=== PATIENT | male | born 1945 | race Caucasian/White ===

== ENCOUNTER → 2017-11-14 10:48 | Outpatient (CLI) | payer OTHER, SELFPAY ==
--- NOTE | 2017-11-14 10:50 | CDU_ITS ---
Reason For Study: Carotid bruit Rt. Velocities/BP Lt. Velocities/BP Prox CCA 66.3/12.9 cm/sec. Prox CCA 93.2/17.6 cm/sec. Mid CCA 67.4/15.8 cm/sec. Mid CCA 69.2/19.9 cm/sec. Dist CCA 64.5/17.6 cm/sec. Dist CCA 62.7/16.4 cm/sec. Prox ICA 55.7/16.4 cm/sec. Prox ICA 65.7/26.4 cm/sec. Mid ICA 78.0/29.3 cm/sec. Mid ICA 78.0/27.0 cm/sec. Dist ICA 51.2/19.9 cm/sec. Dist ICA 68.1/21.4 cm/sec. Rt. ICA/CCA = 1.2. Lt. ICA/CCA = 1.1. Prox ECA 65.7/9.4 cm/sec. Prox ECA 64.0/8.6 cm/sec. Rt. Vert. 37.5/10.0 cm/sec. Lt. Vert. 41.6/12.9 cm/sec. Right Extracranial There is intimal thickening but no significant atherosclerotic plaque noted in the right common carotid artery. There is intimal thickening but no significant atherosclerotic plaque noted in the right internal carotid artery. There is heterogeneous, irregular atherosclerotic plaque noted in the right external carotid artery. Antegrade flow is noted in the right vertebral artery. Left Extracranial There is intimal thickening but no significant atherosclerotic plaque noted in the left common carotid artery. There is intimal thickening but no significant atherosclerotic plaque noted in the left internal carotid artery. There is heterogeneous, irregular atherosclerotic plaque noted in the left external carotid artery. Antegrade flow is noted in the left vertebral artery. Procedure Carotid Duplex 55926. Exam performed in department. Interpretation Summary No hemodynamically significant plague or stenosis bilateral internal carotids with <50% stenosis bilaterally. Normal flow bilateral external carotids. Patent and antegrade vertebrals bilaterally. Ordering Physician: Jose Delaney Referring Physician: Jose Delaney Performed By: Shalonda Montes RVT
[2017-11-14 11:00] LABS: Absolute Neutrophil Count 2.6 X10^3/uL (2.0-7.7); Basophil# 0.02 X10^3/uL; Basophil% 0.4 % (0-1); Eosinophil# 0.24 X10^3/uL; Eosinophils% 4.8 % (0-5); Hematocrit 43.4 % (40-54); Hemoglobin 14.7 g/dl (13.0-16.5); Mean Corp Hgb Conc 33.9 g/gl (32-36); Mean Corpuscular Volume 97.3 fL (80-94); Mean Platelet Vol. 9.8 fl (6.2-12.0); Monocyte# 0.75 X10^3/uL; Neutrophil # 2.58 X10^3/uL (2.7-7.7); Neutrophil % 51.6 % (47-70); Platelet Count 169 K/mm3 (150-450); RBC Distribution Width SD 48.5 fl (35.1-43.9); Red Blood Count 4.46 M/mm3 (4.6-6.2)
[2017-11-14 11:01] LABS: POSITIVE COUNT NO; POSITIVE DIFFERENTIAL NO; POSITIVE MORPHOLOGY NO
[2017-11-14 11:34] LABS: Anion Gap 6 (5-15); BUN 22 mg/dL (7-18); BUN/Creat Ratio 20.4 RATIO (10-20); Calcium,Total 8.6 mg/dL (8.5-10.1); Chloride 110 mmol/L (98-107); Cholesterol 208 mg/dL (200); Creatinine, Serum 1.08 mg/dL (0.70-1.30); EST Glomerular Filtration Rate 71 mL/min (>60); Est Glom Filt Rate - Afr Amer 86 mL/min (>60); Glucose 79 mg/dL (74-106); High Density Lipoprotein 46 mg/dL; Potassium 4.2 mmol/L (3.5-5.1); Sodium Level 144 mmol/L (136-145); Triglycerides 85 mg/dL; Very Low Density Lipoprotein 17 mg/dL (5-40)
== END ==
PROVIDERS: Visit Provider Surgery
DX: Z01.811 Encounter for preprocedural respiratory examination (principal); Z01.818 Encounter for other preprocedural examination; R09.89 Other specified symptoms and signs involving the circulatory and respiratory systems
CPT/HCPCS: 36415; 80048; 80061; 85025; 93880

== ENCOUNTER → 2017-11-26 06:53 | Day surgery (SDC) | payer OTHER, SELFPAY ==
[2017-11-23 09:41] VITALS: BMI 28.7
[2017-11-26 07:09] LABS: Hematocrit 45.2 % (40-54); Hemoglobin 15.6 g/dl (13.0-16.5); Mean Corp Hgb Conc 34.5 g/gl (32-36); Mean Corpuscular Hgb 33.6 pg (27.0-32.0); Mean Corpuscular Volume 97.4 fL (80-94); Mean Platelet Vol. 9.4 fl (6.2-12.0); Platelet Count 175 K/mm3 (150-450); RBC Distribution Width CV 13.8 % (11.6-14.6); RBC Distribution Width SD 48.8 fl (35.1-43.9); Red Blood Count 4.64 M/mm3 (4.6-6.2); White Blood Count 6.3 K/mm3 (4.4-11.0)
[2017-11-26 07:10] LABS: Scan Indicated on CBC? Y/N NO
[2017-11-26 07:23] LABS: Anion Gap 7 (5-15); BUN 13 mg/dL (7-18); BUN/Creat Ratio 10.9 RATIO (10-20); Calcium,Total 8.8 mg/dL (8.5-10.1); Chloride 109 mmol/L (98-107); Creatinine, Serum 1.19 mg/dL (0.70-1.30); EST Glomerular Filtration Rate 64 mL/min (>60); Est Glom Filt Rate - Afr Amer 77 mL/min (>60); Estimated Creatinine Clearance 56.23 ml/min; Glucose 89 mg/dL (74-106); Potassium 3.9 mmol/L (3.5-5.1); Sodium Level 144 mmol/L (136-145)
[2017-11-26 10:01] LABS: ACT Activated Clotting Time 208 sec (74-137)
[2017-11-26 10:01] LABS: ACT Activated Clotting Time 125 sec (74-137)
[2017-11-26 10:01] LABS: ACT Activated Clotting Time 202 sec (74-137)
--- NOTE | 2017-11-26 10:07 | PCM.OPRPT ---
Problem List (1) PAD (peripheral artery disease) Status: Acute Report of Operation Date of Procedure: 11/26/17 Pre-Operative Diagnosis: Ulceration with cellulitis dorsum left foot. Peripheral vascular occlusive disease Post-Operative Diagnosis: Ulceration with cellulitis dorsum left foot. Peripheral vascular occlusive disease. Total 11 cm occlusion left superficial femoral artery. 70% stenosis left posterior tibial artery Surgery/Procedure Performed:: Abdominal pelvic left lower extremity arteriogram with left superficial femoral artery 6 x 100 mm ever cross angioplasty and 7 x 150 mm ever flex stenting Description of Surgical Findings:: 72-year-old gentleman. Timeout and informed consent was obtained. He was taken to the special procedures lab. He received 2 g of Ancef intravenously. Bilateral groins were sterilely prepped and draped. Ultrasound was used to identify the right common femoral artery. Under ultrasound guidance 2% lidocaine was instilled. Then a micropuncture needle was inserted under ultrasound guidance. Micropuncture wire was inserted. A 6 [place] short sheath dilator was inserted. Using an angled Glidewire and a 5 [place] universal flush catheter [place] was gained to the abdominal aorta. A AP aortogram was obtained using Visipaque contrast the rate of 15 cc a second for 15 cc of diluted contrast. The catheter was then withdrawn to the left common iliac and utilizing a Glidewire the catheter could then be advanced into the left distal external iliac. Static views were obtained. Then the catheter was again advanced into the left superficial femoral artery and static views were obtained of the left lower extremity down below the knee. This demonstrated complete occlusion over 11 cm of the left superficial femoral artery. I then used a Magic wire removed the flush catheter removed the sheath and placed a 7 [place] destination sheath. Having achieved that I then utilized a 018 Quick cross catheter and a connect wire was able to get through the proximal But then it went subintimal and was not able to get through the distal. So then I exchanged out for a 4 [place] angled glide cath and I exchanged out for a stiff Glidewire I was able then to go subintimal and get back into true lumen just at the inferior aspect of the patella right where the vessel refilled on images. I advance the 4 [place] angled glide cath performed an image demonstrating true lumen. I then left that wire in place. The patient had received 9000 units of heparin and based upon ACT measurements received another thousand units of heparin. A 6 x 100 m ever cross balloon was used to perform balloon angioplasty. Follow-up views unfortunately demonstrated dissection particularly proximally and residual stenosis distally. So I then placed a 7 x 150 mm ever flex prot?g? stent. That was then seated in place with the 6 x 100 mm ever cross balloon. Final views now demonstrated complete resolution of the occlusion with good in-line flow. I completed the images of the left below knee. The sheath was removed. I then inserted a minx sheath. I inserted the minx device. The balloon was inflated was withdrawn the device was then applied was allowed to sit for 2 minutes and it was released and removed. Pressure was held for hemostasis no apparent complication. The left foot had good Doppler DP and PT signals. Blood loss was minimal no apparent complication. Images demonstrate a widely patent abdominal aorta bilateral common iliacs external iliacs and internal iliacs and superficial femoral and profunda femoris proximally. The left leg shows complete occlusion of the superficial femoral for 11 cm starting close to Connor's canal extending down to the patella. There is three-vessel runoff to the left lower extremity with 70% stenosis of the mid left posterior tibial artery. The left anterior tibial is very dominant and the peroneal was patent. Subsequent to the angioplasty and stenting there is now direct in-line flow through the superficial femoral artery. Impression Successfully treated left superficial femoral artery with reestablished in-line flow through the area of complete occlusion. I elected not to treat the posterior tibial at this setting. Will evaluate for resolution of the patient's left foot cellulitis and ulceration. Jose Delaney M.D., F.A.C.S. Total contrast used was 50 cc Type of Anesthesia:: IV Sedation
--- NOTE | 2017-11-26 10:17 | OP.PCM_ITS ---
Problem List (1) PAD (peripheral artery disease) Status: Acute Report of Operation Date of Procedure: 11/26/17 Pre-Operative Diagnosis: Ulceration with cellulitis dorsum left foot. Peripheral vascular occlusive disease Post-Operative Diagnosis: Ulceration with cellulitis dorsum left foot. Peripheral vascular occlusive disease. Total 11 cm occlusion left superficial femoral artery. 70% stenosis left posterior tibial artery Surgery/Procedure Performed:: Abdominal pelvic left lower extremity arteriogram with left superficial femoral artery 6 x 100 mm ever cross angioplasty and 7 x 150 mm ever flex stenting Description of Surgical Findings:: 72-year-old gentleman. Timeout and informed consent was obtained. He was taken to the special procedures lab. He received 2 g of Ancef intravenously. Bilateral groins were sterilely prepped and draped. Ultrasound was used to identify the right common femoral artery. Under ultrasound guidance 2% lidocaine was instilled. Then a micropuncture needle was inserted under ultrasound guidance. Micropuncture wire was inserted. A 6 [place] short sheath dilator was inserted. Using an angled Glidewire and a 5 [place] universal flush catheter [place] was gained to the abdominal aorta. A AP aortogram was obtained using Visipaque contrast the rate of 15 cc a second for 15 cc of diluted contrast. The catheter was then withdrawn to the left common iliac and utilizing a Glidewire the catheter could then be advanced into the left distal external iliac. Static views were obtained. Then the catheter was again advanced into the left superficial femoral artery and static views were obtained of the left lower extremity down below the knee. This demonstrated complete occlusion over 11 cm of the left superficial femoral artery. I then used a Magic wire removed the flush catheter removed the sheath and placed a 7 [place] destination sheath. Having achieved that I then utilized a 018 Quick cross catheter and a connect wire was able to get through the proximal But then it went subintimal and was not able to get through the distal. So then I exchanged out for a 4 [place] angled glide cath and I exchanged out for a stiff Glidewire I was able then to go subintimal and get back into true lumen just at the inferior aspect of the patella right where the vessel refilled on images. I advance the 4 [place] angled glide cath performed an image demonstrating true lumen. I then left that wire in place. The patient had received 9000 units of heparin and based upon ACT measurements received another thousand units of heparin. A 6 x 100 m ever cross balloon was used to perform balloon angioplasty. Follow-up views unfortunately demonstrated dissection particularly proximally and residual stenosis distally. So I then placed a 7 x 150 mm ever flex prot?g? stent. That was then seated in place with the 6 x 100 mm ever cross balloon. Final views now demonstrated complete resolution of the occlusion with good in-line flow. I completed the images of the left below knee. The sheath was removed. I then inserted a minx sheath. I inserted the minx device. The balloon was inflated was withdrawn the device was then applied was allowed to sit for 2 minutes and it was released and removed. Pressure was held for hemostasis no apparent complication. The left foot had good Doppler DP and PT signals. Blood loss was minimal no apparent complication. Images demonstrate a widely patent abdominal aorta bilateral common iliacs external iliacs and internal iliacs and superficial femoral and profunda femoris proximally. The left leg shows complete occlusion of the superficial femoral for 11 cm starting close to Connor's canal extending down to the patella. There is three-vessel runoff to the left lower extremity with 70% stenosis of the mid left posterior tibial artery. The left anterior tibial is very dominant and the peroneal was patent. Subsequent to the angioplasty and stenting there is now direct in-line flow through the superficial femoral artery. Impression Successfully treated left superficial femoral artery with reestablished in-line flow through the area of complete occlusion. I elected not to treat the posterior tibial at this setting. Will evaluate for resolution of the patient' s left foot cellulitis and ulceration. Jose Delaney M.D., F.A.C.S. Total contrast used was 50 cc Type of Anesthesia:: IV Sedation
== END ==
PROVIDERS: Family Provider Family Medicine; PCP Family Medicine; Visit Provider Surgery
DX: I73.9 Peripheral vascular disease, unspecified (principal); L97.529 Non-pressure chronic ulcer of other part of left foot with unspecified severity; L03.116 Cellulitis of left lower limb; R01.1 Cardiac murmur, unspecified; R09.89 Other specified symptoms and signs involving the circulatory and respiratory systems; Z87.891 Personal history of nicotine dependence
CPT/HCPCS: 36200; 36245; 36415; 37226; 75625; 75710; 76937; 80048; 85027; 85347; 99152; 99153; C1760; J7030; Q9967; C1725; C1769; C1876; C1887; C1894

== ENCOUNTER → 2017-12-27 08:42 | Outpatient (CLI) | payer OTHER, SELFPAY ==
--- NOTE | 2017-12-27 11:53 | LEAS ---
Arterial Study - Arterial Study Arterial Study: Bilateral lower extremity noninvasive arterial exam with exercise Patient with symptomatic left lower extremity claudication and recent history of stent placement Right lower extremity The right PT and DP ankle-brachial indices at rest are 1.191.07 respectively with triphasic Doppler waveforms. The volume pulse recordings demonstrate normal amplification at the calf ankle the ankle and digital waveforms are well maintained. With exercise the right FADIA goes from resting 1.192 media after exercise at 1.13. There is complete recovery by 9 minutes. Left lower extremity The left PT and DP ankle-brachial index at rest are 1.21 and 1.25 respectively with triphasic Doppler waveforms. Volume pulse recordings demonstrate normal waveform at the calf and the ankle and digital waveforms are adequately maintained. With exercise left FADIA goes from resting 1.252 immediately after exercise at 1.12. There is incomplete recovery at 9 minutes. Impression Normal bilateral lower extremity noninvasive resting indices. Very minimal decline in exercise index bilaterally slightly more noted on the left. This would be consistent with very mild disease. The location of the process cannot be identified. There are no findings that would suggest clinically significant ischemia. Jose Delaney M.D., F.A.C.S.
== END ==
PROVIDERS: Family Provider Family Medicine; PCP Family Medicine; Visit Provider Surgery
DX: I73.9 Peripheral vascular disease, unspecified (principal)
CPT/HCPCS: 93924

== ENCOUNTER → 2018-07-15 09:18 | Outpatient (CLI) | payer SELFPAY ==
--- NOTE | 2018-07-16 05:59 | LEAS_ITS ---
Arterial Study - Arterial Study Arterial Study: Bilateral lower extremity noninvasive arterial exam with exercise Patient with previous history of peripheral arterial occlusive disease and left lower extremity stent Right lower extremity The right PT and DP ankle-brachial index at rest 1.061.06 respectively with tri phasic Doppler waveforms. Volume pulse recordings demonstrate nice waveforms at the calf and maintained ankle and digital waveforms. With exercise the right FADIA goes from resting 1.06 to immediately after exercise at 0.93 there is recovery at 3 minutes at 1.27 Left lower extremity The left PT and DP ankle-brachial indices at rest are 1.13 and 1.11 respectively with triphasic Doppler waveforms. The volume pulse recordings demonstrate normal waveform at the calf. Ankle waveforms slightly depressed while the digital waveform is well maintained. With exercise the left FADIA goes from resting 1.13 to immediately after exercise at 0.88. The highest recovery is at 3 minutes at 1.03 Impression Right lower extremity resting indices are normal and there is minimal decline with exercise on the right consistent with minimal occlusive disease with location not specified. Left lower extremity also demonstrates normal resting indices. With exercise there is a immediate exercise in the ankle-brachial index with essential recovery by 3 minutes. This would be consistent with mild occlusive disease in the range of vascular claudication. The level of that disease is not specified on this exam. Jose Delaney M.D., F.A.C.S.
== END ==
PROVIDERS: Family Provider Family Medicine; PCP Family Medicine; Referring Provider Physician Assistant; Visit Provider Physician Assistant
DX: I73.9 Peripheral vascular disease, unspecified (principal)
CPT/HCPCS: 93924

== ENCOUNTER → 2019-03-04 | Outpatient (CLI) | payer SELFPAY ==
--- NOTE | 2019-03-04 07:41 | ART_ITS ---
Reason For Study: PAD Left Segmental Pressures Left brachial= 128mmHg. Left posterior tibial artery = 161mmHg. Left dorsalis pedis artery = 154mmHg. The left dorsalis pedis waveforms are triphasic. The left posterior tibial artery waveforms are triphasic. Right Segmental Pressures Right brachial= 135mmHg. Right posterior tibial artery = 179mmHg. Right dorsalis pedis artery = 164mmHg. The right dorsalis pedis waveforms are triphasic. The right posterior tibial artery waveforms are triphasic. Indices The right ankle brachial index by the dorsalis pedis is 1.21. The right ankle brachial index by the posterior tibial artery is 1.33. The right ankle brachial index by the dorsalis pedis post exercise is 1.31. The left ankle brachial index by the dorsalis pedis is 1.14. The left ankle brachial index by the posterior tibial artery is 1.19. The left posterior tibial artery index post exercise is 1.06. Interpretation Summary Resting ankle-brachial indices appear bilaterally normal. Post exercise indices are normal on the right and demonstrate very minimal decline on the left but remain within normal range. Ordering Physician: Jose Delaney Performed By: CODY GARCIA [facility]
--- NOTE | 2019-03-04 07:41 | ADUL_ITS ---
Reason For Study: Peripheral artery stent Left Velocities Ext Iliac Artery, dist = 112.5 cm./sec. Common Femoral Artery, mid = 74.4 cm./sec. Supf. Femoral Artery, prox = 89.1 cm./sec. Supf. Femoral Artery, mid = 54.7 cm./sec. Supf. Femoral Artery, dist = 114.4 cm./sec. Profunda Femoral Artery = 87.9 cm./sec. Popliteal Artery, proximal, = 139.9 cm./sec. Popliteal Artery, mid = 105.2 cm./sec. Popliteal Artery, distal = 90.6 cm./sec. Ant.Tibial Artery, prox = 32.1 cm./sec. Ant Tibial Artery, mid = 211.3 cm./sec. Ant. Tibial Artery, distal = 38.0 cm./sec. Post. Tibial Artery, prox = 81.4 cm./sec. Post Tibial Artery, mid = 77.8 cm./sec. Post Tibial Artery, dist. = 101.4 cm./sec. Peroneal Artery, prox = 54.0 cm./sec. Peroneal Artery, mid = 54.0 cm./sec. Peroneal Artery,dist. = 81.4 cm./sec. Prox Stent 60.9 cm/s. Mid Stent 54.7 cm/s. Dist Stent 90.3 cm/s. Interpretation Summary Stent noted in the left mid superficial femoral artery Velocities are relatively constant throughout the stent--patent. From the left mid superficial femoral artery to the distal superficial femoral artery there is velocity doubling consistent with 50-99% stenosis. 50-99% stenosis left proximal to mid anterior tibial artery. Ordering Physician: Jose Delaney Performed By: Richie Cao, RVT
== END | disposition home or self-care (01) ==
PROVIDERS: Family Provider Family Medicine; PCP Family Medicine; Referring Provider Surgery; Visit Provider Surgery
DX: I73.9 Peripheral vascular disease, unspecified (principal); Z95.820 Peripheral vascular angioplasty status with implants and grafts
CPT/HCPCS: 93924; 93926

== ENCOUNTER → 2020-04-01 12:32 | Outpatient (CLI) | payer OTHER, SELFPAY ==
[2020-03-23 10:41] VITALS: BMI 28.7
--- NOTE | 2020-04-01 12:32 | ART_ITS ---
Reason For Study: Claudication Procedure A bilateral lower extremity continuous wave Doppler with analog waveform analysis,segmental pressures,and ankle brachial indexes with exercise. Left Segmental Pressures Left brachial= 164mmHg. Left posterior tibial artery = 185mmHg. Left dorsalis pedis artery = 178mmHg. The left dorsalis pedis waveforms are triphasic. The left posterior tibial artery waveforms are triphasic. Right Segmental Pressures Right brachial= 157mmHg. Right posterior tibial artery = 186mmHg. Right dorsalis pedis artery = 173mmHg. The right dorsalis pedis waveforms are triphasic. The right posterior tibial artery waveforms are triphasic. Indices The right ankle brachial index by the dorsalis pedis is 1.05. The right ankle brachial index by the posterior tibial artery is 1.13. The right post exercise ankle brachial index is 1.07. The left ankle brachial index by the dorsalis pedis is 1.09. The left ankle brachial index by the posterior tibial artery is 1.13. The left post exercise ankle brachial index is 1.06. Interpretation Summary Normal bilateral lower extremity ankle-brachial indices and triphasic Doppler waveforms at rest Minimal decline bilateral lower extremity ankle-brachial indices with exercise Ordering Physician: Jose Delaney Referring Physician: Christa Morgan Performed By: Lidia Clayton RVT and Student
--- NOTE | 2020-04-01 12:32 | ADUL_ITS ---
Reason For Study: PAD Left Velocities Ext Iliac Artery, dist = 137.4 cm./sec. Common Femoral Artery, mid = 100.1 cm./sec. Supf. Femoral Artery, prox = 64.6 cm./sec. Supf. Femoral Artery, mid = 51.1 cm./sec. Prox Stent, 68.8 cm/sec. Mid Stent, distal SFA, 84.3 cm/sec. Distal Stent, 74.4 cm/sec. Profunda Femoral Artery = 124.1 cm./sec. Popliteal Artery, proximal, = 106.7 cm./sec. Popliteal Artery, mid = 107 cm./sec. Popliteal Artery, distal = 112.5 cm./sec. Post. Tibial Artery, prox = 101.6 cm./sec. Post Tibial Artery, mid = 86.9 cm./sec. Post Tibial Artery, dist. = 97.8 cm./sec. Peroneal Artery, prox = 72.2 cm./sec. Peroneal Artery, mid = 68.6 cm./sec. Peroneal Artery,dist. = 75.9 cm./sec. Ant.Tibial Artery, prox = 33.6 cm./sec. Ant Tibial Artery, mid = 10.9 cm./sec. Ant. Tibial Artery, distal = 41.5 cm./sec. Procedure Exam performed in department. Interpretation Summary Patent left lower extremity arteries with evidence of stent a stent in the left mid to distal superficial femoral artery. 0 to 19% stenosis throughout the left superficial femoral artery with 20 to 49% stenosis of the left popliteal based upon Doppler waveform analysis 50 to 99% stenosis left anterior tibial artery Ordering Physician: Jose Delaney Referring Physician: Christa Morgan Performed By: Lidia Clayton RVT
== END ==
PROVIDERS: PCP Internal Medicine; Referring Provider Surgery; Visit Provider Surgery
DX: I73.9 Peripheral vascular disease, unspecified (principal)
CPT/HCPCS: 93924; 93926

== ENCOUNTER → 2022-01-27 | Outpatient (CLI) | payer OTHER, SELFPAY ==
[2022-01-27 12:43] LABS: Anion Gap 4 (5-15); BUN 22 mg/dL (7-18); BUN/Creat Ratio 19.6 RATIO (10-20); Calcium,Total 8.9 mg/dL (8.5-10.1); Chloride 109 mmol/L (98-107); Cholesterol 170 mg/dL (200); Creatinine, Serum 1.12 mg/dL (0.70-1.30); EST Glomerular Filtration Rate 67 mL/min (>60); Est Glom Filt Rate - Afr Amer 82 mL/min (>60); Glucose 91 mg/dL (74-106); High Density Lipoprotein 63 mg/dL; PSA,Total - Annual Screen 2.79 ng/mL (0.00-4.00); Sodium Level 140 mmol/L (136-145); Triglycerides 67 mg/dL; Very Low Density Lipoprotein 13 mg/dL (5-40)
== END | disposition home or self-care (01) ==
LOC: MFPLAB 10:29
PROVIDERS: PCP Family Medicine; Referring Provider Family Medicine; Visit Provider Family Medicine
DX: Z00.00 Encounter for general adult medical examination without abnormal findings (principal); N40.0 Benign prostatic hyperplasia without lower urinary tract symptoms
CPT/HCPCS: 36415; 80048; 80061; 84153; G0103

== ENCOUNTER → 2023-06-05 | Outpatient (CLI) | payer SELFPAY, OTHER ==
--- NOTE | 2023-06-05 09:42 | ART_ITS ---
Reason For Study: PVD Procedure A bilateral lower extremity continuous wave Doppler with analog waveform analysis,segmental pressures,and ankle brachial indexes without exercise. Left Segmental Pressures Left brachial= 139mmHg. Left thigh = 152mmHg. Left calf = 100mmHg. Left posterior tibial artery = 74mmHg. Left dorsalis pedis artery = 63mmHg. Left digit = 39 mmHg. The left posterior tibial artery waveforms are monophasic. The left dorsalis pedis waveforms are monophasic. Right Segmental Pressures Right brachial= 146mmHg. Right posterior tibial artery = 152mmHg. Right dorsalis pedis artery = 152mmHg. Right digit = 121 mmHg. The right posterior tibial artery waveforms are triphasic. The right dorsalis pedis waveforms are triphasic. Indices The right ankle brachial index by the posterior tibial artery is 1.04. The right ankle brachial index by the dorsalis pedis is 1.04. The right wrist-brachial index is 0.83. The left ankle brachial index by the posterior tibial artery is 0.51. The left ankle brachial index by the dorsalis pedis is 0.43. The left digital-brachial index is 0.27. VL/Lower Ext Art Exam w/o Exercis Interpretation Summary Right FADIA 1.04, normal. TBI and Doppler/PVR waveforms of the right leg normal a t rest. Left FADIA 0.51, severe arterial insufficiency. Doppler/PVR waveforms and segment al pressures reveal distal SFA/popliteal, infrapopliteal disease. Ordering Physician: Erick Alvarado Referring Physician: Shay Abdi Performed By: Ashish Rodriguez, RVT
--- NOTE | 2023-06-05 09:42 | VDLE_ITS ---
Reason For Study: LLE Ulcer, PVD RIGHT LEFT CFV is compressible, spontaneous, phasic, CFV is compressible, spontaneous, phasic, competent and demonstrates normal competent, and demonstrates normal augmentation. augmentation. Procedure FV is compressible, phasic, and INCOMPETENT This is a venous duplex using B-mode, color for greater than 1.0 second. flow and spectral Doppler. POP V is compressible, phasic, and Exam performed in department. INCOMPETENT for greater than 1.0 second. The exam was diagnostic. Bright intraluminal web like echoes consistent with chronic DVT seen in Pop V, T/P Trunk and Gastroc Vein. PTV is compressible. LT PerV is compressible. SFJ is INCOMPETENT and measures 0.69 cm. GSV proximal thigh measures 0.58 x 0.65 cm. GSV at knee measures 0.53 x 0.56 cm. GSV INCOMPETENT throughout for greater than 0.5 seconds. SSV proximal calf is competent and measures 0.29 x 0.33 cm. PERF V at Mid Calf is INCOMPETENT for greater than 0.5 seconds and measures 0.33 cm. Multiple varicosities noted throughout prox and mid calf. VL/Venous Duplex US, Unilateral Interpretation Summary Chronic deep vein thrombosis is noted in the left popliteal vein, tibioperoneal trunk vein, gastrocnemius vein Positive for reflux in the left femoral vein, popliteal vein, saphenofemoral ju nction, great saphenous vein, and mid calf pit steward Ordering Physician: Erick Alvarado Referring Physician: Shay Abdi Performed By: Ashish Rodriguez, RVT
== END | disposition home or self-care (01) ==
LOC: CVS 09:42
PROVIDERS: PCP Family Medicine; Referring Provider Surgery Trauma Surgery; Visit Provider Surgery Trauma Surgery
DX: I87.2 Venous insufficiency (chronic) (peripheral) (principal); L97.929 Non-pressure chronic ulcer of unspecified part of left lower leg with unspecified severity; I73.9 Peripheral vascular disease, unspecified
CPT/HCPCS: 93923; 93971

== ENCOUNTER 2023-06-13 06:34 | Day surgery (SDC) | payer OTHER, SELFPAY ==
[2023-06-12 07:59] VITALS: BMI 25.7
[2023-06-13 06:47] LABS: Absolute Lymphocyte Count 1.78 X10^3/uL (0.83-4.51); Absolute Neutrophil Count 4.9 X10^3/uL (2.0-7.7); Basophil# 0.03 X10^3/uL; Basophil% 0.4 % (0-1); Eosinophil# 0.31 X10^3/uL; Eosinophils% 3.9 % (0-5); Hematocrit 41.4 % (40-54); Hemoglobin 13.5 g/dL (13.0-16.5); Lymphocyte # 1.78 X10^3/ul (0.83-4.51); Lymphocyte % 22.3 % (19-41); Mean Corp Hgb Conc 32.6 g/dL (32-36); Mean Corpuscular Hgb 32.5 pg (27.0-32.0); Mean Corpuscular Volume 99.8 fL (80-94); Mean Platelet Vol. 9.6 fl (6.2-12.0); Monocyte# 0.95 X10^3/uL; Monocyte% 11.9 % (0-10); NRBC Flagged by Analyzer 0 % (0-5); Neutrophil % 61.1 % (47-70); Platelet Count 206 K/mm3 (150-450); RBC Distribution Width CV 13.4 % (11.6-14.6); Red Blood Count 4.15 M/mm3 (4.6-6.2)
[2023-06-13 07:01] LABS: Anion Gap 4 (5-15); BUN 18 mg/dL (7-18); BUN/Creat Ratio 16.5 RATIO (10-20); Chloride 110 mmol/L (98-107); Creatinine, Serum 1.09 mg/dL (0.70-1.30); EST Glomerular Filtration Rate 69 mL/min (>60); Est Glom Filt Rate - Afr Amer 84 mL/min (>60); Estimated Creatinine Clearance 60.32 ml/min; Glucose 95 mg/dL (74-106); Potassium 4.2 mmol/L (3.5-5.1); Sodium Level 141 mmol/L (136-145)
--- NOTE | 2023-06-13 10:59 | PCM.OPRPT ---
Report of Operation Date of Procedure: 06/13/23 Pre-Operative Diagnosis: venous insufficiency with ulceration Post-Operative Diagnosis: same Surgery/Procedure Performed:: venogram IVC IVUS IVC, bilateral common/external iliac veins Surgeon: Erick Alvarado Type of Anesthesia: Local and Sedation,Conscious Estimated Blood Loss (mL): 2 Description of Procedure: HPI: Patient is a 77-year-old male with bilateral lower extremity venous insufficiency and significant both superficial and deep reflux. He has had multiple recurrent wounds of the left lateral foot that appears venous in origin. He does also have arterial insufficiency with a prior SFA popliteal intervention which is occluded. It is suspected that he has combined arterial and venous etiology to his wound. He presents now for central venogram with intravascular ultrasound to assess for central venous compression given his deep vein insufficiency. Description procedure: Upon obtaining form consent and verification correct patient procedure site patient taken to the [employer] [facility] where he was positioned prepped and draped in usual fashion. Time was performed consultation administered Versed and fentanyl. Skin overlying the right common femoral anesthetized 1% lidocaine the vessel accessed under ultrasound guidance with micropuncture needle wire. This was exchanged for micropuncture sheath through which injection ilio caval venogram was performed revealing satisfactory positioning and normal caliber IVC and right iliac vein system. There are no significant collaterals visualized normal transit of contrast. Through this a [employer]ica wire advanced the micropuncture sheath exchanged out for a 10 [place] sheath. Neck skin overlying the left common femoral vein anesthetized with 1% lidocaine the vessel asked with micropuncture needle wire and ultrasound guidance. This was then exchanged for micropuncture sheath routine injection ilio caval venogram was performed revealed some slowed contrast transit but normal caliber iliac veins with no significant collaterals. Dewey advantage wire was then advanced and the micropuncture sheath exchanged out for a 10 [place] sheath. Intravascular sound probe was then brought on the field and advanced via the right femoral access sheath. Recorded pullback of the IVC, right common iliac, right external iliac was performed which revealed no compression. Intravascular supply was then withdrawn and advanced via the left femoral access sheath and recorded pullback performed of the IVC, left common iliac, left external iliac. This revealed approximately 11% compression of the common iliac vein which we did not meet threshold for intervention. The ultrasound probe and wires were then withdrawn and the sheath withdrawn a minute pressure held for 10 minutes after which satisfactory stasis was noted. Patient was then taken to the recovery room for bedrest for discharge home.
== END 2023-06-13 11:00 | disposition home or self-care (01) ==
PROVIDERS: Physician Assistant; PCP Family Medicine; Referring Provider Surgery Trauma Surgery; Visit Provider Surgery Trauma Surgery
DX: I87.2 Venous insufficiency (chronic) (peripheral) (principal); L97.529 Non-pressure chronic ulcer of other part of left foot with unspecified severity; I73.9 Peripheral vascular disease, unspecified; I82.532 Chronic embolism and thrombosis of left popliteal vein; I82.552 Chronic embolism and thrombosis of left peroneal vein; I82.562 Chronic embolism and thrombosis of left calf muscular vein; I77.1 Stricture of artery; Z79.82 Long term (current) use of aspirin; Z87.891 Personal history of nicotine dependence
CPT/HCPCS: 36010; 36415; 37252; 37253; 75825; 76937; 80048; 85025; 99152; 99153; C1753; C1769; C1894; J7040

== ENCOUNTER → 2023-07-02 | Outpatient (CLI) | payer OTHER, SELFPAY ==
--- NOTE | 2023-07-02 14:43 | CT_ITS ---
EXAM: CT ANGIOGRAPHY ABDOMEN AND PELVIS WITH RUNOFF TO THE LOWER EXTREMITIES WITH INTRAVENOUS CONTRAST CLINICAL INDICATION: LLE atherosclerosis with ulceration TECHNIQUE: Helically acquired angiography images were obtained of the abdomen, pelvis and lower extremities with intravenous contrast using CTA runoff protocol. This CT exam was performed using one or more of the following dose reduction techniques: automated exposure control, adjustment of the mA and/or kV according to patient size, and/or use of iterative reconstruction technique. MIP reconstructed images were created and reviewed. CONTRAST: IV 100mL [id number] COMPARISON: No relevant prior studies available. FINDINGS: VASCULATURE: AORTA: No acute findings. Normal caliber abdominal aorta. No occlusion or significant stenosis. No dissection. CELIAC TRUNK AND MESENTERIC ARTERIES: No acute findings. No occlusion or significant stenosis. No dissection. RENAL ARTERIES: No acute findings. No occlusion or significant stenosis. No dissection. 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 RIGHT ILIAC ARTERIES: No acute findings. No occlusion or significant stenosis. No dissection. RIGHT FEMORAL/POPLITEAL ARTERIES: Diffuse atherosclerotic changes. No occlusion or significant stenosis. No dissection. RIGHT CALF/FOOT ARTERIES: Proximal trifurcation vessels are patent. The right dorsalis pedis artery however may be occluded distally. Small right posterior tibial artery extends to at least the level of the ankle. LEFT ILIAC ARTERIES: No acute findings. No occlusion or significant stenosis. No dissection. LEFT FEMORAL/POPLITEAL ARTERIES: Prominent diffuse atherosclerotic changes of the left femoral artery. Occluded stent along the left popliteal artery. LEFT CALF/FOOT ARTERIES: Collateral flow noted within the trifurcation vessels with only the posterior tibial artery extending to the ankle. LOWER THORAX: Not visualized. ABDOMEN: LIVER: Normal as visualized. PANCREAS: Normal. No focal cystic or solid mass. SPLEEN: Normal. Normal size without focal cystic or solid mass. ADRENALS: 10 mm left adrenal nodule. KIDNEYS AND URETERS: 3.8 cm cyst noted within the upper pole right kidney. Normal renal size and position. No hydronephrosis. STOMACH AND BOWEL: Diverticulosis of the colon noted without evidence of acute diverticulitis. No stomach or bowel distention. PELVIS: APPENDIX: No evidence of acute appendicitis. BLADDER: Normal. REPRODUCTIVE: Unremarkable as visualized. No mass. ABDOMEN, PELVIS and LOWER EXTREMITIES: INTRAPERITONEAL SPACE: Normal. No ascites or other fluid collection. No free air. BONES/JOINTS: Normal. No suspicious lytic or blastic abnormality. SOFT TISSUES: Normal. No discrete abdominal or pelvic wall hernia. LYMPH NODES: Normal. No enlarged lymph nodes. CT/CTA Abd w/Runoff W/WO Contrast IMPRESSION: Occluded left popliteal artery stent. Poor distal runoff noted bilaterally via the posterior tibial arteries. Electronically Signed: Bandar Guerra MD at 16:17 EST ,
== END | disposition home or self-care (01) ==
LOC: CT 14:42
PROVIDERS: PCP Family Medicine; Referring Provider Physician Assistant; Visit Provider Physician Assistant
DX: I70.202 Unspecified atherosclerosis of native arteries of extremities, left leg (principal); S91.302A Unspecified open wound, left foot, initial encounter
CPT/HCPCS: 75635; Q9967

== ENCOUNTER 2023-07-16 05:28 | Inpatient (IN) | payer OTHER, SELFPAY ==
[2023-07-16] VITALS (17 sets, daily range): BP systolic 92–154; BP diastolic 50–93; PULSE 72–99; RESP 11–20; TEMP 36.4–36.8; O2SAT 90–99; BMI 26.4; BMI 26.5
[2023-07-16] MEDS: Lactated Ringers 1,000 ML 15 ML IV (06:21)
--- NOTE | 2023-07-16 07:28 | PCM.HP.BLA ---
History and Physical Allergies No Known Allergies Allergy (Verified 07/11/23 14:12) Medications aspirin 81 mg tablet,delayed release (Adult Aspirin Regimen) 81 mg PO DAILY HEART HEALTH 07/18/18 [History Confirmed 07/11/23] oxycodone 5 mg tablet 5 mg PO .qhs PRN pain 14 days #14 tabs 06/13/23 [Rx Confirmed 07/11/23] PFSH Medical History Alcohol use Back pain Cardiac murmur Cellulitis Former smoker Heartburn History of edema History of pain when walking Left carotid bruit Loss of hearing Open wound PAD (peripheral artery disease) Prostate disease PVD (peripheral vascular disease) Rheumatoid arthritis Unspecified open wound, left foot, initial encounter Wears glasses Surgical History Peripheral arterial disease with history of revascularization s/p abdominal pelvic left lower extremity arteriogram (~11/26/17) S/P tonsillectomy Family History Father Heart disease Social History Smoking Status: Former smoker alcohol intake: never HPI HPI HPI: MEDARDO MCALLISTER, is a 77 M who presents to the office today for follow up of RLE wound. Venogram revealed no central obstruction. Has left GSV reflux with multiple varicosities. CTA revealed occlusion of prior popliteal stent with reconstitution of tibials, PT dominant runoff. Here to discuss options. ROS General General: No weight change, appetite, fatigue, colon cancer, breast cancer or weakness HEENT HEENT: No difficulty swallowing, eye injury, eye surgery, swollen glands or hoarseness Endo Endocrine: No thyroid disease, diabetes mellitus, thyroid cancer, Hair loss, heat intolerance or cold intolerance Skin Skin: No rash or changing moles Musc Musculoskeletal: No back problems, arthritis, rheumatoid arthritis, gout or joint pain Cardio Cardiovascular: No murmur, pacemaker, heart disease, atrial fibrillation, high blood pressure, heart attack, heart stent, palpitations, shortness of breat with exertion or chest pain Psych Psychiatric: No depression, anxiety or hearing voices Resp Respiratory: No shortness of breath, No sleep apnea, No cough, No COPD, No asthma, No emphysema and No wheezing Gastro Gastrointestinal: No abdominal pain, No nausea or vomiting, No diarrhea, No constipation, No blood in stool, No acid reflux, Yes hemorrhoids, No ulcers, No gallbladder problem and No black,tarry stools Сергей Hematologic: Yes blood thinners, No blood disorders, No bleeding, No anemia and No blood clots Additional Details: ASA Neuro Neurologic: No system reviewed and no additional complaints, except as documented, No as per HPI, No abnormal gait, No abnormal hearing, No abnormal movements, No abnormal speech, No behavioral changes, Yes burning sensations, No confusion, No convulsions, No disequilibrium, No dizziness, No localized weakness, No frequent falls, No headache(s), No lack of coordination, No loss of vision, No memory loss, No numbness, No other visual disturbances, Yes radicular pain, No restless legs, No sensory deficit, No syncope, Yes tingling, No tremor(s), No weakness and No other Exam Const General: cooperative, healthy appearing, comfortable, no acute distress and well developed Nutritional Appearance: well nourished Orientation: alert, awake and oriented x3 HENMT Head: normocephalic and atraumatic Ears: hearing grossly normal bilaterally Nose: external nose normal Eyes General: appearance normal, both eyes and all related structures EOM: EOM intact bilaterally Neck Neck: normal visual inspection, full ROM, no lymphadenopathy and trachea midline Thyroid: thyroid normal Lymphatic: no lymphadenopathy noted Resp Effort & Inspection: normal respiratory effort, able to speak in complete sentences, symmetric chest movement, no audible wheezes, not labored, no stridor and no use of accessory muscles Cardio Rate: regular rate Rhythm: regular rhythm Pulses: brachial pulses present, radial pulses present, popliteal pulses not present, posterior tibial pulses not present and dorsalis pedis pulses not present Skin General: no rashes or lesions noted and no erythema Wounds: wounds noted (left lateral foot ) Neuro Cranial Nerves: CN's II-XI intact bilaterally and EOM intact bilaterally Speech: speech normal Gait: normal gait Motor: strength 5/5 throughout Sensory Exam: no sensory deficits noted Extremities Lower Extremity Edema: None: Bilateral Veins: Left: Varicose Veins, Left: Reticular Veins and Left: Hemosiderin Psych Appearance: grossly normal and well kempt Mental Status: mental status grossly normal Mood: congruent mood Speech and Movement: speech and movement normal Thought Content: normal Judgment: judgment good Coding Level of Care Code Off vis,est,level 3 Diagnoses Atherosclerosis of [place] artery of left lower extremity with ulceration of midfoot I70.244 Peripheral atherosclerosis artery type: [place] artery Peripheral atherosclerosis clinical manifestation: with ulceration Lower extremity ulceration location: midfoot Assessment and Plan Assessment and Plan (1) Atherosclerosis of left lower extremity: Status: Chronic Qualifiers: Peripheral atherosclerosis artery type: [place] artery Peripheral atherosclerosis clinical manifestation: with ulceration Lower extremity ulceration location: midfoot Qualified Code(s): I70.244 - Atherosclerosis of [place] arteries of left leg with ulceration of heel and midfoot Plan: -left foot wound, mixed venous/arterial etiology -reflux primarily in GSV, and adequate size for potential bypass conduit -CTA images reviewed, occluded popliteal stent with reconstitution of tibials -bypass using GSV would address both arterial and venous issues -plan left fem-PT bypass with GSV
[2023-07-16] MEDS: Cefazolin 2 GM in 0.9% Normal Saline (100mL Bag) 100 ML IV (07:33)
[2023-07-16] MEDS: Heparin 10,000 UNITS/10 ML Vial 10000 UNITS (08:19)
[2023-07-16] MEDS: Heparin Injection (Vial) 5,000 UNIT/ML VIAL 5000 UNIT (08:19)
[2023-07-16] MEDS: Bacitracin 500 UNITS/GM PACKET (13:33)
--- NOTE | 2023-07-16 13:34 | PCM.OPRPT ---
Report of Operation Date of Procedure: 07/16/23 Pre-Operative Diagnosis: atherosclerosis with ulceration, left lower extremity Post-Operative Diagnosis: same Surgery/Procedure Performed:: left SFA-PT bypass with saphenous vein Surgeon: Erick Alvarado Type of Anesthesia: General Estimated Blood Loss (mL): 150 Description of Procedure: HPI: Patient is a 77-year-old male with recurrent left foot wound with both severe venous insufficiency as well as arterial occlusive disease with SFA popliteal occlusion of prior stent. Given the extent of his arterial occlusions and the combined arterial and venous nature he is taken now for femoral to posterior tibial bypass utilizing great saphenous vein in an effort to hopefully treat both etiology simultaneously. Description of procedure: Upon obtaining form consent and verification correct patient procedure site patient taken the operating was placed under anesthesia. Ultrasound and used to lili the great saphenous vein along its course from the saphenofemoral junction to the mid calf where multiple varicosities were located. Ultrasound also used to evaluate the superficial femoral artery which based on CT scan was patent to the distal SFA and the ultrasound confirmed disease-free superficial femoral artery down to the mid thigh. Plan was for SFA to posterior tibial bypass from the mid thigh to the mid calf. Patient was then positioned prepped and draped in usual fashion and longitudinal incision was made over the superficial femoral artery. Both electrocautery to dissect down through subcutaneous tissue and self-retaining retractors put in position. Further dissection was then carried down to the fascia which was incised and retractors moved deeper in the wound. Sharp resected and used dissect free the superficial femoral artery with care taken to identify uptake adjacent to the nerve and vein structures. The vessel was soft and free from any significant plaque surrounding was used to place a vessel loop proximal and distal. Next longitudinal incision was made in the medial aspect of the calf and Bovie electrocautery used to dissect down to the level of the fascia. The fascia was then incised and self-retaining retractors put in position. The gastric medius muscle was then retracted posterior laterally and the psoas muscle taken down from the tibia with Bovie electrocautery. Once we entered into the deep posterior compartment the posterior tibial artery was visualized and sharp dissection was then used to dissect free proximal and distal with care taken to identify and protect adjacent nerves and vein structures. A right angle was used to place a vessel loop on the vessel which was soft and free from plaque. Finally the great saphenous vein was harvested via multiple skip incisions with side branches ligated with silk ties and divided. The vein was of satisfactory appearance and caliber throughout the entirety of its length. Once a satisfactory extent of the vein was mobilized a tunneler was then used to tunnel from the posterior tibial operative field to the SFA operative field. The patient was then heparinized and allowed circulate for 3 minutes. Saphenous vein was then ligated distally in the calf and pulled through each of the harvest incisions up to the saphenofemoral junction. The saphenofemoral junction was then clamped with a Eddie clamp and the vein divided and placed in heparinized saline. The saphenofemoral junction stump was then oversewn with 5-0 Prolene in 2 layers after which the clamps were removed and satisfactory stasis was noted. The vein was then flushed and satisfactory stasis noted from all side branches and no areas of stricture were identified. The superficial femoral artery was then occluded with Vesseloops and longitudinal arteriotomy was created with ablation of the pot scissors. The vein was then reversed and orientation and beveled to match the arteriotomy. Anastomosis performed using a 6-0 Prolene running fashion. After playing the suture line the vessels were flushed into the graft and then antegrade flow return to the SFA. The vein was then marked to maintain orientation and clamped with atraumatic clamp at the anastomosis. The conduit was then attached to the tunneler and pulled through to the calf incision. The posterior tibial artery was then occluded with Vesseloops and longitudinal arteriotomy created along the lifestyle upon scissors. The vein was then cut to length and beveled to match the arteriotomy and then anastomosis performed using a 7-0 Prolene in a running fashion. Prior to completing suture line the vessels were backbled and after completing suture on the clamps removed and satisfactory stasis was noted. There is a palpable pulse in the graft as well as in the posterior tibial beyond anastomosis. The bypass and the vessel were then evaluated with Doppler and found to be patent with appropriate signal. There is also an improved posterior tibial biphasic signal at the ankle. The incisions were then inspected for hemostasis and hemoblast topical hemostatic applied. The incisions were then closed with 2-0 Vicryl for the fascia followed by 3-0 Vicryl and 4 Monocryl for the superficial layer and the skin. Dry sterile dressings were then applied followed by an Braden wrap. The patient was awakened anesthesia taken to recovery and dissipate admission intensive care unit.
[2023-07-16] MEDS: 0.45% Normal Saline 1,000 ML 100 ML IV (15:10)
[2023-07-16] MEDS: HEPARIN/D5w 25,000 UNITS 25,000 UNITS/250 ML IV.SOLN. 5 UNITS CONT INF (16:01)
[2023-07-16] MEDS: Cefazolin 1 GM/50 ML BAG IV ×2 (16:07→21:09)
[2023-07-16] MEDS: Acetaminophen 500 MG Tablet 1000 MG PO ×2 (16:07→21:15)
[2023-07-16] MEDS: Famotidine 20 MG Tablet PO (21:14)
[2023-07-17] VITALS (13 sets, daily range): BP systolic 79–121; BP diastolic 43–79; PULSE 70–100; RESP 12–20; TEMP 36.6–36.9; O2SAT 92–98; BMI 26.5; BMI 27.1
[2023-07-17] MEDS: 0.45% Normal Saline 1,000 ML 100 ML IV (00:54)
[2023-07-17] MEDS: MELATONIN 3 MG TABLET PO (00:57)
[2023-07-17 05:40] LABS: Absolute Lymphocyte Count 1.13 X10^3/uL (0.83-4.51); Absolute Neutrophil Count 5.1 X10^3/uL (2.0-7.7); Basophil# 0.01 X10^3/uL; Basophil% 0.1 % (0-1); Eosinophil# 0.01 X10^3/uL; Eosinophils% 0.1 % (0-5); Hematocrit 32.2 % (40-54); Hemoglobin 10.6 g/dL (13.0-16.5); Lymphocyte # 1.13 X10^3/ul (0.83-4.51); Lymphocyte % 15.9 % (19-41); Mean Corp Hgb Conc 32.9 g/dL (32-36); Mean Corpuscular Hgb 32.2 pg (27.0-32.0); Mean Corpuscular Volume 97.9 fL (80-94); Mean Platelet Vol. 9.5 fl (6.2-12.0); Monocyte# 0.81 X10^3/uL; Monocyte% 11.4 % (0-10); NRBC Flagged by Analyzer 0 % (0-5); Neutrophil # 5.11 X10^3/uL (2.7-7.7); Neutrophil % 71.8 % (47-70); Platelet Count 147 K/mm3 (150-450); RBC Distribution Width CV 14.4 % (11.6-14.6); RBC Distribution Width SD 51.9 fl (35.1-43.9); Red Blood Count 3.29 M/mm3 (4.6-6.2); White Blood Count 7.1 K/mm3 (4.4-11.0)
[2023-07-17 05:52] LABS: Anion Gap 5 (5-15); BUN 19 mg/dL (7-18); BUN/Creat Ratio 16.8 RATIO (10-20); Calcium,Total 7.7 mg/dL (8.5-10.1); Chloride 110 mmol/L (98-107); Creatinine, Serum 1.13 mg/dL (0.70-1.30); EST Glomerular Filtration Rate 66 mL/min (>60); Est Glom Filt Rate - Afr Amer 80 mL/min (>60); Estimated Creatinine Clearance 54.73 ml/min; Glucose 105 mg/dL (74-106); Potassium 4.1 mmol/L (3.5-5.1); Sodium Level 141 mmol/L (136-145)
[2023-07-17] MEDS: Acetaminophen 500 MG Tablet 1000 MG PO (05:52)
--- NOTE | 2023-07-17 08:25 | PN.SURG_ITS ---
Subjective Subjective Patient is doing well this morning, resting comfortably in bed. He reports minimal discomfort at the surgical sites, some discomfort around the wound on his left foot. He denies any CP, SOB, lightheadedness/dizziness, abdominal pain, nausea, vomiting. Skinner was removed earlier this morning, has not yet voided but no urge. Tolerating diet progression to this point. Objective Data Objective Data Vital Signs: Vital Signs Temp Pulse Resp BP Pulse Ox O2 Del Method O2 Flow Rate 98.4 F 72 20 H 94/70 95 Room Air 2 07/17/23 05:00 07/17/23 07:00 07/17/23 07:00 07/17/23 07:00 07/17/23 07:00 07/17/23 07:00 07/16/23 20:00 Oxygen Flow Rate (L/min) 2 Oxygen Delivery Method Room Air Weight: 193 lb 9.6 oz Body Mass Index (BMI) 27.1 Intake & Output: Intake and Output for Last 24 Hours 07/15/23 07/16/23 07/17/23 23:59 23:59 23:59 Intake Total 576 / 576 973.33 / 973.33 Output Total 1225 / 1225 525 / 525 Balance -649 / -649 448.33 / 448.33 Lab / Micro Data 07/17/23 05:30 07/17/23 05:30 Labs: Laboratory Results - last 24 hr 07/17/23 05:30: WBC 7.1, RBC 3.29 L, Hgb 10.6 L, Hct 32.2 L, MCV 97.9 H, MCH 32.2 H, MCHC 32.9, RDW Std Deviation 51.9 H, RDW Coeff of Phu 14.4, Plt Count 147 L, MPV 9.5, Immature Gran % (Auto) 0.700, Neut % (Auto) 71.8 H, Lymph % (Auto) 15.9 L, Clinch % (Auto) 11.4 H, Eos % (Auto) 0.1, Baso % (Auto) 0.1, Absolute Neuts (auto) 5.1, Absolute Lymphs (auto) 1.13, Nucleated RBC % 0, Sodium 141, Potassium 4.1, Chloride 110 H, Carbon Dioxide 26.0, Anion Gap 5, BUN 19 H, Creatinine 1.13, Estim Creat Clear Calc 54.73, Est GFR (MDRD) Af Amer 80, Est GFR (MDRD) Non-Af 66, BUN/Creatinine Ratio 16.8, Glucose 105, Calcium 7.7 L Physical Exam Const alert, oriented x3 and no apparent distress General Appearance: cooperative and comfortable HEENT normocephalic, head/scalp atraumatic, hearing grossly normal bilaterally and external nose normal Eyes EOMs intact bilaterally General Eye: normal appearance of both eyes Neck General: normal visual inspection and trachea midline Resp normal respiratory effort, normal air movement, no retractions and no use of accessory muscles Effort and Inspection: able to speak in complete sentences; Negative for respiratory distress, labored, stridor or audible wheezes Cardio regular rate and regular rhythm Extremity Extremity Narrative: L PT faintly palpable this morning with stable, low-resistance signals. L foot with appropriate color and warmth, mildly edematous LLE incision sites covered with post-op dressings inatct, no erythema/focal swelling/drainage/bleed through. Skin no rashes or lesions noted Trauma: no lacerations or abrasions Neuro oriented x3, CN's II-XII intact bilaterally, moves all extremities, no focal motor deficits and no sensory deficits noted Speech: speech normal Psych mental status grossly normal, cooperative, affect normal, speech normal and activity/motor behavior normal Judgement: judgement good Assessment & Plan Assessment/Plan (1) Atherosclerosis of left lower extremity: QUALIFIERS: Peripheral atherosclerosis artery type: [place] artery Peripheral atherosclerosis clinical manifestation: with ulceration Lower extremity ulceration location: midfoot Qualified Code(s): I70.244 - Atherosclerosis of [place] arteries of left leg with ulceration of heel and midfoot (2) Venous insufficiency: (3) Wound of left foot: PLAN: Plan Mr. Jackson is POD#1 from left SFA-PT bypass with saphenous vein. Stable LLE doppler signals, incision sites satisfactory in appearance. BP have been on the lower side, will continue to monitor. Skinner catheter was removed this morning, voiding trial. Will progress to normal diet. He will get up to the chair and ambulate with nursing/PT later this morning. Possible d/c this afternoon.
[2023-07-17] MEDS: Aspirin E.C. 81 MG Tablet PO (08:26)
[2023-07-17] MEDS: Famotidine 20 MG Tablet PO (08:26)
[2023-07-17] MEDS: oxyCODONE 5 MG Tablet PO (08:29)
--- NOTE | 2023-07-17 12:10 | PCM.DC.SUM ---
Providers Date of Admission: 07/16/23 Primary Care Physician: Dr. 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 Code(s): I70.202 - Unspecified atherosclerosis of [place] arteries of extremities, left leg Qualifiers: Lower extremity ulceration location: midfoot Peripheral atherosclerosis artery type: [place] artery Peripheral atherosclerosis clinical manifestation: with ulceration Qualified Code(s): I70.244 - Atherosclerosis of [place] arteries of left leg with ulceration of heel and midfoot (2) Venous insufficiency: Status: Acute Code(s): I87.2 - Venous insufficiency (chronic) (peripheral) (3) Wound of left foot: Status: Acute Code(s): S91.302A - Unspecified open wound, left foot, initial encounter Plan Mr. Jackson is POD#1 from left SFA-PT bypass with saphenous vein. Stable LLE doppler signals, incision sites satisfactory in appearance. BP have been on the lower side, will continue to monitor. Skinner catheter was removed this morning, voiding trial. Will progress to normal diet. He will get up to the chair and ambulate with nursing/PT later this morning. Possible d/c this afternoon. Medications at Discharge Home Medications aspirin 81 mg tablet,delayed release (Adult Aspirin Regimen) 81 mg PO DAILY [facility] 07/18/18 docusate sodium 100 mg capsule (Colace) 100 mg PO DAILY PRN constipation #7 caps 07/17/23 oxycodone 5 mg tablet 5 mg PO Q8H PRN PRN Pain Score 4-10 7 days #21 tabs 07/17/23 Hospital Course Operations - (Left SFA-PT bypass) Summary of Care Provided Hospital Course: Mr. Memo Jackson is a 77 y/o M who underwent L SFA to PT bypass with saphenous vein on 07/16/23 for recurrent left foot wound in the setting of severe peripheral arterial occlusive disease and venous insufficiency. He tolerated the procedure well. He was routinely admitted to the ICU for hemodynamic monitoring postoperatively. He has remained hemodynamically stable throughout his admission. Today, his surgical pain is well-controlled, he is voiding without difficulty, he is ambulating well, he is tolerating a full diet. The incision sites are satisfactory in appearance. He is medically stable for discharge home with his . Follow-up is scheduled in the office in 2-4 weeks. Physical Exam Const alert, oriented x3 and no apparent distress General Appearance: cooperative and comfortable HEENT normocephalic, head/scalp atraumatic, hearing grossly normal bilaterally and external nose normal Eyes EOMs intact bilaterally General Eye: normal appearance of both eyes Neck General: normal visual inspection and trachea midline Resp normal respiratory effort, normal air movement, no retractions and no use of accessory muscles Effort and Inspection: able to speak in complete sentences; Negative for respiratory distress, labored, stridor or audible wheezes Cardio regular rate and regular rhythm Extremity Extremity Narrative: L PT faintly palpable this morning with stable, low-resistance signals. L foot with appropriate color and warmth, mildly edematous LLE incision sites covered with post-op dressings inatct, no erythema/focal swelling/drainage/bleed through. Skin no rashes or lesions noted Trauma: no lacerations or abrasions Neuro oriented x3, CN's II-XII intact bilaterally, moves all extremities, no focal motor deficits and no sensory deficits noted Speech: speech normal Psych mental status grossly normal, cooperative, affect normal, speech normal and activity/motor behavior normal Judgement: judgement good Weight / BMI Weight Weight: 193 lb 9.6 oz Body Mass Index (BMI) 27.1 ABG / Lab / Microbiology Data 07/17/23 05:30 07/17/23 05:30 Laboratory: Laboratory Results - last 24 hr 07/17/23 05:30: WBC 7.1, RBC 3.29 L, Hgb 10.6 L, Hct 32.2 L, MCV 97.9 H, MCH 32.2 H, MCHC 32.9, RDW Std Deviation 51.9 H, RDW Coeff of Phu 14.4, Plt Count 147 L, MPV 9.5, Immature Gran % (Auto) 0.700, Neut % (Auto) 71.8 H, Lymph % (Auto) 15.9 L, [place] % (Auto) 11.4 H, Eos % (Auto) 0.1, Baso % (Auto) 0.1, Absolute Neuts (auto) 5.1, Absolute Lymphs (auto) 1.13, Nucleated RBC % 0, Sodium 141, Potassium 4.1, Chloride 110 H, Carbon Dioxide 26.0, Anion Gap 5, BUN 19 H, Creatinine 1.13, Estim Creat Clear Calc 54.73, Est GFR (MDRD) Af Amer 80, Est GFR (MDRD) Non-Af 66, BUN/Creatinine Ratio 16.8, Glucose 105, Calcium 7.7 L D/C Instructions Discharge Diet: No restrictions May shower in (days): 1 Weight Bearing Status: Weight bearing as tolerated Lifting Restricted to (Lbs): 20 Lifting Restrictions: Do not lift greater than 20 pounds for 3 weeks Call your doctor if your incision/area has: Sudden Increased Bleeding, Increased Pain/ Swelling and Foul Smelling Discharge Call your doctor if you observe: Fever of 101 or Higher and Uncontrolled pain Remove Dressing in: 6 days (07/23/23) Additional Instructions: There are postoperative dressings over the surgical incisions on your left leg. Leave these dressings in place for 1 week (until Sunday07/23/23) as long as they remain clean and dry. Should the dressings become soiled or loosen, it is okay to remove them earlier. The incisions were closed with surgical glue. The surgical glue will continue to protect the incisions after the postoperative dressings are removed. The surgical glue will peel/flake off on its own over the next couple weeks. Please do not pick at it. Do not submerge the incision sites in water (such as to take a bath or swim) for 3 weeks. Do not lift greater than 20 pounds for 3 weeks. Otherwise, you may proceed with activity as tolerated. You have been prescribed oxycodone 5mg tablets to be taken as needed for pain. You may take Tylenol in addition to this as needed. Follow-up in the office in 2-4 weeks as scheduled or sooner as needed. Please contact the office at [phone] with any questions or concerns. Please Follow Up With: Maggie Brower PA When: 2-4 weeks Meaningful Use Info Meaningful Use Diagnoses (Choose all that apply): None applicable Discharge Plan Admission Admit Date/Time: 07/16/23 05:28 Primary Reason for Your Visit: Left SFA-PT bypass with saphenous vein Attending Provider: Erick Alvarado Primary Care Provider: Shay Abdi Instructions Additional Instructions / Restrictions: There are postoperative dressings over the surgical incisions on your left leg. Leave these dressings in place for 1 week (until Sunday07/23/23) as long as they remain clean and dry. Should the dressings become soiled or loosen, it is okay to remove them earlier. The incisions were closed with surgical glue. The surgical glue will continue to protect the incisions after the postoperative dressings are removed. The surgical glue will peel/flake off on its own over the next couple weeks. Please do not pick at it. Do not submerge the incision sites in water (such as to take a bath or swim) for 3 weeks. Do not lift greater than 20 pounds for 3 weeks. Otherwise, you may proceed with activity as tolerated. You have been prescribed oxycodone 5mg tablets to be taken as needed for pain. You may take Tylenol in addition to this as needed. Follow-up in the office in 2-4 weeks as scheduled or sooner as needed. Please contact the office at [phone] with any questions or concerns. Discharge Orders/Prescriptions Prescriptions: New oxycodone 5 mg Tablet 5 mg PO Q8H PRN PRN (Reason: Pain Score 4-10) 7 Days Qty: 21 0RF docusate sodium [Colace] 100 mg capsule 100 mg PO DAILY PRN (Reason: constipation) Qty: 7 0RF Continued aspirin [Adult Aspirin Regimen] 81 mg tablet,delayed release (DR/EC) 81 mg PO DAILY Discontinued oxycodone 5 mg tablet 5 mg PO .qhs PRN (Reason: pain) 14 Days Qty: 14 0RF Referrals / Follow Up: Shay Abdi MD [Primary Care Provider] - Disposition Disposition (needs filled in before D/C Order can be placed): Home, Self Care
--- NOTE | 2023-07-17 14:32 | CASEMGMT ---
RN?CM?CODE CLERK?CM?to room to meet with patient for initial transition planning/care coordination?assessment.?RN?CM?introduced self and role at [facility].? Pt voices understanding and consents to?assessment?at this time.? Pt sitting up in chair in room in no distress at this time.? @ bedside. Pt is A/O at this time and answers all questions appropriately.?? Care providers, pharmacy, and demographics verified/updated at this time. PCP: Dr Abdi Specialists: Dr Alvarado-vascular, Dr Davison-podiatry Preferred Pharmacy: [facility] Retail Insurance: [facility] [place] Pres[place] Benefit:?none LNOK: , [place]. SonRonnie Living Arrangements: Lives w/his in one-story home w/no steps to enter. Son, Ronnie, lives next door. Pt is indep w/ADL's and manages his own medications. manages home tasks. Pt does his own daily dsg changes/wound care to wound on left foot and states he has all supplies needed. Transportation: Hire drivers. Grand-dtr will take him home. DME: ? Denies using any DME and denies needs.? HHC/SNF: No hx of either. No needs identified. Pt wishes to return home and states has no concerns with going home at time of discharge.? Pt voices no further concerns/needs at this time.? PLAN:??Home w/spousal support and discharge plans in place. Mignon BSN?RN?CM
--- NOTE | 2023-07-17 15:40 | PHA.DC_ITS ---
Pharmacy [place] Med Reconciliation Pharmacy Service has performed discharge medication reconciliation for this patient. Medication education papers prepared, patient was discharge before I was able to correctional counselor. Medications reviewed. The patient's discharge medication list was reviewed for discrepancies and discrepancies were resolved. Medications at Discharge Home Medications aspirin 81 mg tablet,delayed release (Adult Aspirin Regimen) 81 mg PO DAILY [facility] 07/18/18 docusate sodium 100 mg capsule (Colace) 100 mg PO DAILY PRN constipation #7 caps 07/17/23 oxycodone 5 mg tablet 5 mg PO Q8H PRN PRN Pain Score 4-10 7 days #21 tabs 07/17/23
== END 2023-07-17 14:30 | disposition home or self-care (01) | DRG 253 ==
LOC: ACINP 05:32 → ICU 07-17 09:44
PROVIDERS: Admitting Provider Surgery Trauma Surgery; PCP Family Medicine; Referring Provider Surgery Trauma Surgery; Visit Provider Surgery Trauma Surgery
PROC: 041L09N Bypass Left Femoral Artery to Posterior Tibial Artery with Autologous Venous Tissue, Open Approach (ICD-10-PCS; principal; 2023-07-16 07:00)
DX: I70.244 Atherosclerosis of native arteries of left leg with ulceration of heel and midfoot (principal); T82.856A Stenosis of peripheral vascular stent, initial encounter; L97.429 Non-pressure chronic ulcer of left heel and midfoot with unspecified severity; I87.2 Venous insufficiency (chronic) (peripheral); Y71.2 Prosthetic and other implants, materials and accessory cardiovascular devices associated with adverse incidents; Z79.82 Long term (current) use of aspirin; Z87.891 Personal history of nicotine dependence
CPT/HCPCS: 36415; 80048; 85025; 86850; 86900; 86901; 93005; 94668; 94762; 99252; 99406; A4648; J7120; G0463; J2405; J3490

== ENCOUNTER → 2023-08-13 | Outpatient (CLI) | payer OTHER, SELFPAY ==
--- NOTE | 2023-08-13 12:17 | ADUL_ITS ---
Reason For Study: HX LLE BPG Left Velocities Ext. Iliac Artery, dist = 146.2 cm./sec. Common Femoral Artery, mid = 116.0 cm./sec. Profunda Femoral Artery = 112.8 cm./sec. Supf Femoral Artery, prox = 119.3 cm./sec. Supf Femoral Artery, mid = 86.7 cm./sec. Bypass Graft noted at Mid/Dist thigh in SFA and extends to mid SECOND FLOOR OPERATOR. Retrograde flow noted at distal BPG anastomosis from mid SECOND FLOOR OPERATOR to Prox SECOND FLOOR OPERATOR. Bypass graft, prox [place] vessel = 73.2 cm./sec. Bypass graft, prox. anastamosis = 148.4 cm./sec. Bypass graft, mid = 59.0 cm./sec. Bypass graft, dist anastamosis = 166.8 cm./sec. Bypass graft, dist [place] vessel = 157.2 cm./sec. Post. Tibial Artery, mid = 169.7 cm./sec. Post. Tibial Artery, dist = 121.4 cm./sec. Ant. Tibial Artery, prox = 48.1 cm./sec. Ant. Tibial Artery, mid = 48.1 cm./sec. Peroneal Artery, prox = 40.4 cm./sec. Peroneal Artery, mid = 0.0 cm./sec. Unable to visualize distal Rosetta A and GLORIA. /US Art Duplex Unilat Lower Ext Interpretation Summary Patent left SFA-posterior tibial bypass graft with mildly elevated velocities a t proximal and distal anastomoses without turbulence. Ordering Physician: Maggie Brower Referring Physician: Shay Abdi Performed By:
--- NOTE | 2023-08-13 12:17 | ART_ITS ---
Reason For Study: HX LLE BPG Procedure A bilateral lower extremity continuous wave Doppler with analog waveform analysis and ankle brachial indexes. Left Segmental Pressures Left brachial= 135mmHg. Left posterior tibial artery = 143mmHg. Left dorsalis pedis artery = 149mmHg. The left posterior tibial artery waveforms are biphasic. The left dorsalis pedis waveforms are biphasic. Right Segmental Pressures Right brachial= 143mmHg. Right posterior tibial artery = 146mmHg. Right dorsalis pedis artery = 141mmHg. The right posterior tibial artery waveforms are biphasic. The right dorsalis pedis waveforms are biphasic. Indices The right ankle brachial index by the posterior tibial artery is 1.02. The right ankle brachial index by the dorsalis pedis is 0.99. The left ankle brachial index by the posterior tibial artery is 1.00. The left ankle brachial index by the dorsalis pedis is 1.04. VL/Ankle Brachial Index Interpretation Summary Right FADIA 1.02, normal. Doppler/PVR waveforms of the right ankle normal at rest . Left FADIA 1.04, normal. Doppler/PVR waveforms of the left ankle normal at rest. Ordering Physician: Maggie Brower Referring Physician: Shay Abdi Performed By: Ashish Rodriguez RVT
--- OUTSIDE RECORDS SUMMARY | 2023-08-13 12:28 | XMS RPT_ITS | CCD ---
Author Name Unknown Address [address] [place] [address] Organization [facility] Care Team Providers Care Jack Spinner Name Role Phone [facility] Admitting Unavaila elsy [facility] Attending Unavaila ble [facility] Primary Care Unavaila ble Results Test Name Value Interpretation Reference Range Facil ity Encounters Encounter Date Encounter Type Care Provider Facility Start: 02-18-2020 End: 02-18-[address] [facility] Procedures Date Procedure Procedure Detail Performing Clinician Start: 02-18-2020 [object Object] JOSIAH VALENTINO Summary Purpose Family History No Family History Records FoundNo Family History Records Found Advance Directives No Advanced Directives Records FoundNo Advanced Directives Records Found Additional Source Comments (unrecognized sect ion and content) No Status Records FoundNo Status Records Found INFORMATION SOURCE (unrecogn ized section and content) DATE CREATED AUTHOR AUTHOR'S PHILLIP GIFFORD 08/28/2020 [facility] FOR RECORDS PERTAINING TO PATIENTS WHO ARE OR HAVE BEEN ENROLLED IN A CHEMICAL DEPENDENCY/SUBSTANCEABUSE PROGRAM, SOME INFORMATION MAY BE OMITTED. This clinical summary was aggregated from multiple sources. Caution should be exercised in using it in the provision of clinical care. This summary normalizes information from multiple sources, and as a consequence, information in this document may materially change the coding, format and clinical context of patient data. In addition, data may be omitted in some cases. CLINICAL DECISIONS SHOULD BE BASED ON THE PRIMARY CLINICAL RECORDS. [employer] provides no warranty or guarantee of the accuracy or completeness of information in this document.
== END | disposition home or self-care (01) ==
LOC: CVS 12:14
PROVIDERS: PCP Family Medicine; Referring Provider Surgery Trauma Surgery; Visit Provider Surgery Trauma Surgery
DX: S91.302A Unspecified open wound, left foot, initial encounter (principal); I73.9 Peripheral vascular disease, unspecified; I87.2 Venous insufficiency (chronic) (peripheral)
CPT/HCPCS: 93922; 93926